=== PATIENT | female | born 1945 | race Two or more races ===

== ENCOUNTER 2018-09-28 12:00 | Inpatient (IN) | payer OTHER ==
[~2018-09-28] VITALS: Ht 154.9 cm; Wt 64.4 kg
[2018-09-28] MEDS ORDERED: COZAAR50 MG (16:16)
[2018-09-28] MEDS ORDERED: OMEGA-3100 MG (16:16)
[2018-09-28] MEDS ORDERED: FLOLIPID40 MG/5 ML (16:16)
[2018-09-28] MEDS ORDERED: CENTRUM ADULTS1 EACH (16:17)
[2018-10-05] MEDS ORDERED: HumaLOG 100 UNIT/1 M SUBCUTANEO (16:11)
[2018-10-05] MEDS ORDERED: Zofran 2MG/ML (2ML) IV (16:11)
[2018-10-05] MEDS ORDERED: OXYC1TAB9 PO (16:12)
[2018-10-05] MEDS ORDERED: INTESTINEX680 M1 PO (16:13)
== END 2018-10-05 17:17 | disposition home or self-care (01) | DRG 331 ==
LOC: SURG 10-02 06:37 → O/R 10-02 06:37 → SURH 10-02 07:00 → SURG 10-02 15:43
PROVIDERS: Surgery
PROC: 0DTP4ZZ Resection of Rectum, Percutaneous Endoscopic Approach (ICD-10-PCS; 2018-10-02)
PROC: 07TC4ZZ Resection of Pelvis Lymphatic, Percutaneous Endoscopic Approach (ICD-10-PCS; 2018-10-02)
PROC: 0DJD8ZZ Inspection of Lower Intestinal Tract, Via Natural or Artificial Opening Endoscopic (ICD-10-PCS; 2018-10-02)
PROC: 0DTN4ZZ Resection of Sigmoid Colon, Percutaneous Endoscopic Approach (ICD-10-PCS; principal; 2018-10-02 07:00)
DX: C19 Malignant neoplasm of rectosigmoid junction (principal); R59.0 Localized enlarged lymph nodes

== ENCOUNTER 2021-12-22 10:24 | Inpatient (IN) | payer OTHER ==
[~2021-12-22] VITALS: Ht 157.5 cm; Wt 69.9 kg
[~2021-12-22 10:24] MED LIST: CENTRUM ADULTS1 EACH; COZAAR50 MG; FLOLIPID40 MG/5 ML; HumaLOG 100 UNIT/1 M SUBCUTANEO; INTESTINEX680 M1 PO; OMEGA-3100 MG; OXYC1TAB9 PO; Zofran 2MG/ML (2ML) IV
[2021-12-22] MEDS ORDERED: COZAAR100 MG PO (15:11)
[2021-12-25] MEDS ORDERED: MAXIMUM D3325 MCG (08:56)
[2021-12-25] MEDS ORDERED: SIMVASTATIN40 MG (08:56)
== END 2021-12-25 14:17 | disposition home or self-care (01) | DRG 735 ==
LOC: SURH 12-24 11:45 → O/R 12-24 12:15 → SURH 12-24 18:54
PROVIDERS: ADMIT Obstetrics & Gynecology Gynecologic Oncology; ATTEND Obstetrics & Gynecology Gynecologic Oncology
PROC: 0UT94ZZ Resection of Uterus, Percutaneous Endoscopic Approach (ICD-10-PCS; 2021-12-24)
PROC: 0UT74ZZ Resection of Bilateral Fallopian Tubes, Percutaneous Endoscopic Approach (ICD-10-PCS; 2021-12-24)
PROC: 0UT24ZZ Resection of Bilateral Ovaries, Percutaneous Endoscopic Approach (ICD-10-PCS; 2021-12-24)
PROC: 0DNU4ZZ Release Omentum, Percutaneous Endoscopic Approach (ICD-10-PCS; 2021-12-24)
PROC: 07TC4ZZ Resection of Pelvis Lymphatic, Percutaneous Endoscopic Approach (ICD-10-PCS; principal; 2021-12-24 20:15)
DX: C54.1 Malignant neoplasm of endometrium (principal); Z20.822 Contact with and (suspected) exposure to COVID-19

== ENCOUNTER 2023-09-05 09:10 | Outpatient (CLI) | payer OTHER ==
[~2023-09-05 09:10] MED LIST changes: +COZAAR100 MG PO; +MAXIMUM D3325 MCG; +SIMVASTATIN40 MG
== END 2023-09-05 09:17 | disposition home or self-care (01) ==
LOC: SONOGRAMA 09:10
PROVIDERS: ATTEND Pathology Anatomic Pathology & Clinical Pathology
DX: D34 Benign neoplasm of thyroid gland (principal); E04.9 Nontoxic goiter, unspecified